=== PATIENT | female | born 1950 | race Caucasian/White ===

== ENCOUNTER 2018-02-03 15:34 | Outpatient (CLI) | payer MEDICARE, OTHER ==
[~2018-02-03] VITALS: Ht 177.8 cm; Wt 70.3 kg
[~2018-02-03 15:34] MED LIST: CA C1TAB26 PO; EST05TD TD; EST45C VG; LEVO100T7 PO; LVT.088T PO; METO25TA2 PO; MTP50T PO; PANT40TA2 PO; SUCR1TAB36 PO; prelief PO
[2018-02-03] MEDS ORDERED: PANT40TA3 PO (15:35)
[2018-02-03] MEDS ORDERED: EST30C VG (15:35)
[2018-02-03] MEDS ORDERED: ESTR1PAT53 TD (15:35)
== END 2018-02-03 15:37 | disposition home or self-care (01) ==
LOC: PREOP 15:34
PROVIDERS: ATTEND Surgery
DX: Z01.818 Encounter for other preprocedural examination (principal)

== ENCOUNTER → 2018-02-08 | Day surgery (SDC) | payer MEDICARE, OTHER ==
[~2018-02-08] VITALS: Ht 177.8 cm; Wt 70.3 kg
[~2018-02-08] MED LIST changes: +EST30C VG; +ESTR1PAT53 TD; +HURRICAINE EXT TUBE (BENZOCAINE) ONE; +HURRICAINE EXT TUBE (BENZOCAINE) XX PRN; +MIDAZOLAM 2 MG/2 ML (VERSED) VIAL IVP ONE; +MIDAZOLAM 2 MG/2 ML (VERSED) VIAL ONE; +NS IV 500 ML 500 ML IV PRN; +NS IV 500 ML 500 ML ONE; +PANT40TA3 PO; +fentaNYL INJECTION 100 MCG/2 ML AMP IVP ONE; +fentaNYL INJECTION 100 MCG/2 ML AMP ONE
--- OUTSIDE RECORDS SUMMARY | 2018-02-08 08:57 | XMS REPORT | Continuity of Care Document ---
Author Author [facility] Organization [facility] Address Unknown Phone Unavailable Allergies Active Description Code Type Severity Reaction Onset Reported/Identified Relationship to Patient Clinical Status Yes No Known Drug Allergies [id number] Drug Allergy Unknown N/A 09/14/2012 Medications There is no data. Problems Date Dx Coded Attending Type Code Diagnosis Diagnosed By 07/26/2015 SATNAM PAREDES STEEL TESTER Ot R10.84 08/11/2015 SATNAM PAREDES STEEL TESTER Ot R10.84 01/17/2016 ELIZABETH PINEDA MD Ot K21.9 GASTRO-ESOPHAGEAL REFLUX DISEASE WITHOUT 01/17/2016 ELIZABETH PINEDA MD Ot Z01.818 ENCOUNTER FOR OTHER PREPROCEDURAL EXAMIN 01/21/2016 SATNAM PAREDES STEEL TESTER Ot R10.84 GENERALIZED ABDOMINAL PAIN 01/21/2016 ELIZABETH PINEDA MD Ot K31.7 POLYP OF STOMACH AND DUODENUM 01/22/2016 SATNAM PAREDES STEEL TESTER Ot R10.84 GENERALIZED ABDOMINAL PAIN 01/22/2016 SATNAM PAREDES STEEL TESTER Ot R10.84 GENERALIZED ABDOMINAL PAIN 01/23/2016 ELIZABETH PINEDA MD Ot K21.9 GASTRO-ESOPHAGEAL REFLUX DISEASE WITHOUT 01/23/2016 MIRIAM WEI, ELIZABETH Jones Ot Z01.818 ENCOUNTER FOR OTHER PREPROCEDURAL EXAMIN 01/24/2016 ELIZABETH PINEDA MD Ot R10.11 RIGHT UPPER QUADRANT PAIN 02/13/2016 ELIZABETH PINEDA MD Ot R10.11 RIGHT UPPER QUADRANT PAIN 02/21/2016 ELIZABETH PINEDA MD Ot R10.11 RIGHT UPPER QUADRANT PAIN 02/02/2018 ELIZABETH PINEDA MD Ot Z01.818 ENCOUNTER FOR OTHER PREPROCEDURAL EXAMIN 02/03/2018 ELIZABETH PINEDA MD Ot Z01.818 ENCOUNTER FOR OTHER PREPROCEDURAL EXAMIN 02/03/2018 ELIZABETH PINEDA MD Ot Z01.818 ENCOUNTER FOR OTHER PREPROCEDURAL EXAMIN Procedures There is no data. Results There is no data. Encounters ACCT No. Visit Date/Time Discharge Status Pt. Type Provider Facility Loc./Unit Complaint [id number] 02/01/2018 05:41:00 02/01/2018 23:59:59 CLS Outpatient ELIZABETH PINEDA MD [facility] PREOP COLONOSCOPY/EGD [id number] 01/22/2016 08:33:00 01/22/2016 23:59:59 CLS Outpatient ELIZABETH PINEDA MD [facility] RAD RUQ PAIN [id number] 01/21/2016 09:20:00 01/21/2016 13:25:00 DIS Outpatient ELIZABETH PINEDA MD [facility] SDC REFLUX [id number] 01/17/2016 06:00:00 01/17/2016 13:42:00 DIS Outpatient ELIZABETH PINEDA MD [facility] PREOP REFLUX [id number] 07/05/2015 07:28:00 07/05/2015 23:59:59 CLS Outpatient SATNAM PAREDES STEEL TESTER [facility] RAD ABDOMINAL DISCOMFORT/PAIN [id number] 10/06/2012 07:12:00 10/06/2012 23:59:59 CLS Outpatient [id number] 10/05/2012 07:09:00 10/05/2012 23:59:59 CLS Outpatient [id number] 02/08/2018 09:30:00 PEN Preadmit ELIZABETH PINEDA MD [facility] ENDO GERD/HX OF POLYPS [id number] 01/14/2017 17:32:30 01/14/2017 23:59:59 CLS Outpatient
[2018-02-08 09:31] VITALS: BP 166/87
--- NOTE | 2018-02-08 10:28 | History & Physicial ---
History of Present Illness History of Present Illness Reason for visit/HPI to undergo an upper endoscopy to evaluate symptoms of reflux disease and for surveillance colonoscopy. She has a personal history of polyps and a family history of colon cancer, in her father. Date of Admission 02/08/18 Date Seen by Provider: Feb 08, 2018 Time Seen by Provider: 10:27 I consulted on this patient on 02/08/18 10:26 Attending Physician Elizabeth Villafuerte MD Admitting Physician Ro Calderón MD Consult Allergies and Home Medications Allergies Coded Allergies: No Known Drug Allergies (Unverified , 09/14/12) Home Medications Estradiol 1 Each Patch.tdwk, 1 EACH TD Twice Weekly, (Reported) Estrogens Conjugated 30 Gm Cr, 0.5 GM VG HS, (Reported) Levothyroxine Sodium 100 Mcg Tablet, 100 MCG PO DAILY, (Reported) Pantoprazole Sodium 40 Mg Tablet.dr, 40 MG PO DAILY Prescribed by: ELIZABETH VILLAFUERTE on 01/21/16 1152 Pantoprazole Sodium 40 Mg Tablet.dr, 40 MG PO DAILY PRN for HEARTBURN, (Reported ) Patient Home Medication List Home Medication List Reviewed: Yes Past Wakxfhd-Gctjas-Wjhreu Hx Patient Social History Marrital Status: Employed/Student: retired Alcohol Use: Rarely Uses Recreational Drug Use: No Smoking Status: Never a Smoker Recent Foreign Travel: No Contact w/other who traveled: No Recent Hopitalizations: No Recent Infectious Disease Expo: No Immunizations Up To Date Date of Influenza Vaccine: Mar 16, 2012 Seasonal Allergies Seasonal Allergies: No Surgeries Yes Hysterectomy, Oophorectomy Respiratory Currently Using CPAP: No Currently Using BIPAP: No Reproductive System Hx Reproductive Disorders: No Sexually Transmitted Disease: No HIV/AIDS: No Female Reproductive Disorders: Denies 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 Gastrointestinal Yes Gastroesophageal Reflux, Polyps Musculoskeletal No Endocrine History of Endocrine Disorders: Yes Endocrine Disorders: Hypothyroidsim HEENT Loss of Vision: Denies Hearing Impairment: Denies Review of Systems Constitutional: no symptoms reported EENTM: no symptoms reported Respiratory: no symptoms reported Cardiovascular: no symptoms reported Gastrointestinal: see HPI Genitourinary: no symptoms reported Musculoskeletal: no symptoms reported Skin: no symptoms reported Psychiatric/Neurological: No Symptoms Reported Physical Exam Vital Signs Vital Signs - First Documented 02/08/18 09:31 Temp 97.8 Pulse 102 Resp 18 B/P (MAP) 166/87 (113) Pulse Ox 95 O2 Delivery Room Air Capillary Refill : Height, Weight, BMI Height: 5'10.00" Weight: 155lbs. 0.0oz. 70.039685sd; 22.2 BMI Method: General Appearance: No Apparent Distress Neck: Normal Inspection Respiratory: Lungs Clear Cardiovascular: Regular Rate, Rhythm Gastrointestinal: Non Tender, Soft Rectal: Deferred Neurologic/Psychiatric: Alert, Oriented x3 Skin: Warm/Dry Assessment/Plan Assessment and Plan lady with history of gastroesophageal reflux disease and a personal history of polyps. For upper endoscopy with concomitant colonoscopy Admission Diagnosis Admission Status: Other (Outpt Proc) ELIZABETH VILLAFUERTE MD Feb 08, 2018 10:28
--- NOTE | 2018-02-08 10:29 | Conscious Sedation/ASA ---
Conscious Sedation Pre-Proced Time Reviewed: 10:29 ASA Class: 2 Airway Mallampati Classification: (venetie ira appropriate class) I. II. III, IV Lungs Heart ASA score ASA 1: a normal healthy patient ASA 2: a patient with a mild systemic disease (mid diabetes, controlled hypertension, obesity ASA 3: a patient with a severe systemic disease that limits activity (angina , COPD, prior Myocardial infarction) ASA 4: a patient with an incapacitating disease that is a constant threat to life (CHF, renal failure) ASA 5: a moribund patient not expected to survive 24 hrs. (ruptured aneurysm) ASA 6: a declared brain patient whose organs are being harvested. For emergent operations, add the letter E after the classification Grade 1 Sedation Plan: Discussed options with patient/fam Note The patient is an appropriate candidate to undergo the planned procedure, sedation, and anesthesia. The patient immediately re-assessed prior to indication. ELIZABETH PINEDA MD Feb 08, 2018 10:29
--- NOTE | 2018-02-08 10:47 | Endo Procedure Record ---
Endo Procedure Report Date of Procedure Last Colonoscopy: Yes Feb 08, 2018 Surgeon (s) ELIZABETH PINEDA MD Post Procedure/Op Diagnosis EGD:short hiatal hernia. Very few, benign-appearing, small polyps along the greater curvature of stomach. Colonoscopy: Sigmoid diverticulosis. No recurrent polyps. Procedure Performed EGD Colonoscopy to cecum Description of Procedure Anesthesia Type: Conscious Sedation Specimen(s) collected/removed none Description of the Procedure Indication for the procedures: This lady came in for an endoscopic assessment of symptoms of reflux disease and for surveillance colonoscopy. She has a personal history of polyps and a family history of colon cancer in her father. Informed consent was obtained after reviewing the procedures in detail. Description of the procedures: EGD: She was placed in left lateral decubitus position and her vital signs were monitored. Conscious sedation was achieved using Versed and fentanyl. The flexible gastroscope was then introduced down the esophagus, past the stomach, into the proximal duodenum. Findings: Esophagus: And uncomplicated, short hiatal hernia. Stomach: Very few, small, benign-appearing polyps along the greater curvature. These had been biopsied in the past and therefore further biopsy was not repeated Duodenum: Normal She tolerated the procedure well and was turned around in preparation for colonoscopy here Impression: Symptoms of reflux disease. No active esophagitis encountered. Colonoscopy: Digital rectal examination was unremarkable. The colonoscope was then introduced in the rectum and advanced to the cecum. The scope was then withdrawn slowl and the mucosa examined in a systematic fashion. Findings: Sigmoid diverticulosis. No recurrent polyps were found He tolerated the procedures well and was taken back to the nursing area in a stable condition. Impression: Polyp surveillance. Family history of colon cancer. No polyps and current examination. Recommend repeating in 5 years. Copy Copies To 1: FOSTER COOK MD, XAVIER M MD Feb 08, 2018 10:46
--- NOTE | 2018-02-08 11:09 | Discharge Inst-Simple/Standard ---
Discharge Inst-Standard Discharge Medications New, Converted or Re-Newed RX: Other Patient Instructions/Follow Up Plan of Care/Instructions/FU: follow up with her primary physician. Repeat colonoscopy in 5 years Activity as Tolerated: Yes Discharge Diet: No Restrictions ELIZABETH PINEDA MD Feb 08, 2018 11:09
[2018-02-08 11:25] VITALS: BP 129/67
[2018-02-08 11:55] VITALS: BP 120/91
[2018-02-08 12:35] VITALS: BP 120/91
== END | disposition home or self-care (01) ==
LOC: ENDO 08:53
PROVIDERS: ATTEND Surgery
DX: Z09 Encounter for follow-up examination after completed treatment for conditions other than malignant neoplasm (principal); K57.30 Diverticulosis of large intestine without perforation or abscess without bleeding; K31.7 Polyp of stomach and duodenum; K44.9 Diaphragmatic hernia without obstruction or gangrene; Z86.010 Personal history of colon polyps; Z80.0 Family history of malignant neoplasm of digestive organs; E03.9 Hypothyroidism, unspecified; Z79.899 Other long term (current) drug therapy

== ENCOUNTER 2020-10-18 08:52 | Outpatient (RCR) | payer MEDICARE, OTHER ==
[~2020-10-18 08:52] MED LIST changes: -HURRICAINE EXT TUBE (BENZOCAINE) ONE; -HURRICAINE EXT TUBE (BENZOCAINE) XX PRN; -MIDAZOLAM 2 MG/2 ML (VERSED) VIAL IVP ONE; -MIDAZOLAM 2 MG/2 ML (VERSED) VIAL ONE; -NS IV 500 ML 500 ML IV PRN; -NS IV 500 ML 500 ML ONE; -PANT40TA3 PO; +PANT40TA52 PO; -fentaNYL INJECTION 100 MCG/2 ML AMP IVP ONE; -fentaNYL INJECTION 100 MCG/2 ML AMP ONE
[2020-11-01] MEDS ORDERED: PATIENT MAY USE OWN MEDS, ALL PO SCH (10:30)
[2020-11-01] MEDS ORDERED: NS IV 1000 ML 1,000 ML IV SCH (10:30)
[2020-11-01] MEDS ORDERED: CALC600T91 PO (14:25)
[2020-11-01] MEDS ORDERED: RIVA20TA PO (14:25)
[2020-11-01] MEDS ORDERED: ESTR10TA VG (14:25)
[2020-11-01] MEDS ORDERED: FLUC200T5 PO (14:25)
[2020-11-01] MEDS ORDERED: FISH1CAP15 PO (14:25)
[2020-11-01] MEDS ORDERED: CHOL500044 PO (14:25)
[2020-11-02 06:21] LABS: INR 1.8 (0.8-1.4); PROTHROMBIN TIME PATIENT 21.4 SEC (12.2-14.7)
[2020-11-02] MEDS ORDERED: LEVO50TA6 PO (09:32)
[2020-11-02] MEDS ORDERED: RIVA20TA PO (09:32)
[2020-11-02] MEDS ORDERED: MTP25TSR PO (09:32)
[2020-11-02] MEDS ORDERED: ASPI-1238 PO (09:32)
== END 2021-01-16 | disposition home or self-care (01) ==
LOC: CARD 08:52
PROVIDERS: ATTEND Family Medicine
DX: I48.0 Paroxysmal atrial fibrillation (principal); R42 Dizziness and giddiness; R53.83 Other fatigue
CPT/HCPCS: 36415; 85610

== ENCOUNTER 2020-11-01 10:30 | Observation (INO) | payer MEDICARE, OTHER ==
[~2020-11-01] VITALS: Ht 177 cm; Wt 68.5 kg
[2020-11-01 11:20] VITALS: BP 151/92
[2020-11-01] MEDS ORDERED: PATIENT MAY USE OWN MEDS, ALL PO SCH (12:45)
--- NOTE | 2020-11-01 12:49 | History & Physical ---
History of Present Illness History of Present Illness Reason for visit/HPI PT IS A 70 Y/O FEMALE WHO IS WELL KNOWN TO ME FROM CLINIC. SHE PRESENTED TO THE HOSPITAL TODAY AFTER I RECEIVED A PHONE CALL FROM THE EVENT MONITORING SERVICE THAT SHE HAD A 30 SECOND RUN OF AFIB WITH RVR WITH A MAXIMUM HEART RATE OF 238. PT WAS PLAYING GOLF AT THE TIME, FELT A STRANGE FLUTTERING IN HER CHEST, BUT DID NOT REALIZE WHAT WAS HAPPENING. SHE HAS BEEN HAVING INTERMITTENT PALPITATIONS PRIOR TO THIS EVENT AND HAD A RUN OF AFIB ON 10/26/2020 WELL. WE WERE NOTIFIED OF THIS BY FAX FROM THE EVENT MONITORING COMPANY AND STARTED HER ON XARELTO YESTERDAY. Date of Admission Nov 01, 2020 at 11:00 Date Seen by a Provider: Nov 01, 2020 Time Seen by a Provider: 19:00 I consulted on this patient on 11/01/20 12:46 Attending Physician Foster Calderón MD Admitting Physician Foster Calderón MD Consult GALA LE MD - CARDIOLOGY Allergies and Home Medications Allergies Coded Allergies: No Known Drug Allergies (Unverified , 09/14/12) Home Medications Calcium Carbonate 600 Mg Tablet, 1,200 MG PO DAILY, (Reported) Last Action: Held Cholecalciferol (Vitamin D3) 125 Mcg Tablet, 125 MCG PO DAILY, (Reported) Last Action: Held Estradiol 10 Mcg Tablet, 10 MCG VG THU,THU, (Reported) Last Action: Held Fish Oil/Dha/Epa 1 Each Capsule, 1 EACH PO TID, (Reported) Last Action: Held Fluconazole 200 Mg Tablet, 200 MG PO MON, (Reported) Last Action: Held Levothyroxine Sodium 100 Mcg Tablet, 100 MCG PO THU,,THU,FR,SA, (Reported) Last Action: Held Rivaroxaban 20 Mg Tablet, 20 MG PO 1800, (Reported) Last Action: Reviewed Patient Home Medication List Home Medication List Reviewed: Yes Past Ololnzd-Hcbfay-Whkmej Hx Past Med/Social Hx: Reviewed Nursing Past Med/Soc Hx, Reviewed and Corrections made Patient Social History Marrital Status: Living Status: LIVES AT HOME WITH SPOUSE IN [place], RETIRED Employed/Student: retired Alcohol Use: Rarely Uses Smoking Status: Never a Smoker 2nd Hand Smoke Exposure: No Physical Abuse Screen: No Sexual Abuse: No Recent Foreign Travel: No Contact w/other who traveled: No Recent Hopitalizations: No Recent Infectious Disease Expo: No Immunizations Up To Date Date of Influenza Vaccine: Mar 16, 2012 Seasonal Allergies Seasonal Allergies: No Past Medical History Surgeries: Hysterectomy, Oophorectomy Currently Using CPAP: No Currently Using BIPAP: No Reproductive: No Sexually Transmitted Disease: No HIV/AIDS: No Female Reproductive Disorders: Denies Hysterectomy Gastrointestinal: Gastroesophageal Reflux, Polyps Endocrine: Hypothyroidsim (HX OF HYPERTHYROIDISM STATUS POST ABLATION WITH RADIOACTIVE IODINE) Loss of Vision: Denies Hearing Impairment: Denies Family History Reviewed and Corrections made Hypertension, Other Conditions/Hx (MYASTHENIA GRAVIS - FATHER) Review of Systems Constitutional: No chills, No fever, No malaise, No weakness EENTM: No hoarseness, No throat pain Respiratory: cough; No dyspnea on exertion; phlegm; No short of breath Cardiovascular: No chest pain, No Hx of Intervention; palpitations Gastrointestinal: No abdominal pain, No constipation, No diarrhea, No loss of appetite, No nausea, No vomiting Genitourinary: frequency : No Musculoskeletal: No back pain, No muscle pain, No muscle weakness Skin: No change in color, No change in hair/nails, No dryness, No rash Psychiatric/Neurological: Anxiety; Denies Depressed, Denies Headache, Denies Numbness, Denies Paresthesia, Denies Weakness All Other Systems Reviewed Negative Unless Noted: Yes Physical Exam Vital Signs Vital Signs - First Documented 11/01/20 11/01/20 11:10 11:20 Temp 37.3 Pulse 125 Resp 11 B/P (MAP) 151/92 (111) Pulse Ox 97 O2 Delivery Room Air Capillary Refill : Height, Weight, BMI Height: 5'10.00" Weight: 155lbs. 0.0oz. 70.772586jl; 22.2 BMI Method: General Appearance: No Apparent Distress, WD/WN Eyes: Bilateral Eye Normal Inspection, Bilateral Eye PERRL, Bilateral Eye EOMI HEENT: PERRL/EOMI, Pharynx Normal Neck: Full Range of Motion, Normal Inspection, Non Tender, Supple Respiratory: Chest Non Tender, Lungs Clear, Normal Breath Sounds, No Accessory Muscle Use, No Respiratory Distress Cardiovascular: Regular Rate, Rhythm, No Edema, No Murmur, Normal Peripheral Pulses Gastrointestinal: Normal Bowel Sounds, No Organomegaly, No Pulsatile Mass, Non Tender, Soft Rectal: Deferred Back: Normal Inspection, No CVA Tenderness, No Vertebral Tenderness Extremity: Normal Capillary Refill, Normal Inspection, Normal Range of Motion, Non Tender, No Calf Tenderness, No Pedal Edema Neurologic/Psychiatric: Alert, Oriented x3, No Motor/Sensory Deficits, Normal 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 PT WAS THEREFORE ADMITTED FOR EVALUATION. - CONTINUE WITH XARELTO 20MG DAILY - RX FOR METOPROLOL STARTED BY CARDIOLOGY - MONITOR OVERNIGHT - WILL REMOVE EVENT MONITOR CHRONIC HYPOTHYROIDISM - FREE T4 WAS 1.23 OUTPT - HIGH NORMAL IS 1.12, MEDICATIONS HAVE BEEN DECREASED FROM 100MCG DAILY OF SYNTHROID DOWN TO AN AVERAGE OF 70MCG DAILY. Admission Diagnosis ATRIAL FIBRILLATION WITH RVR CHRONIC HYPOTHYROIDISM Admission Status: Inpatient Order (span 2 midnights) Reason for Inpatient Admission: INPT ADMISSION FOR AFIB RVR, WILL REQUIRE MEDICATION MONITORING FOR AT LEAST 48 HOURS FOSTER CALDERÓN MD Nov 01, 2020 12:49
[2020-11-01] MEDS: NS IV 1000 ML 1,000 ML IV SCH (13:08)
[2020-11-01 13:09] LABS: BASOPHILS % (AUTO) 1 % (0-10); EOSINOPHILS # (AUTO) 0.1 10^3/uL (0.0-0.3); EOSINOPHILS % (AUTO) 1 % (0-10); HEMATOCRIT 41 % (35-52); HEMOGLOBIN 13.3 g/dL (11.5-16.0); LYMPHOCYTES # (AUTO) 1.7 10^3/uL (1.0-4.0); LYMPHOCYTES % (AUTO) 24 % (12-44); MEAN CORPUSCULAR HEMOGLOBIN 30 pg (25-34); MEAN CORPUSCULAR HGB CONC 33 g/dL (32-36); MEAN CORPUSCULAR VOLUME 91 fL (80-99); MEAN PLATELET VOLUME 10.1 fL (9.0-12.2); MONOCYTES # (AUTO) 0.6 10^3/uL (0.0-1.0); MONOCYTES % (AUTO) 9 % (0-12); NEUTROPHILS # (AUTO) 4.6 10^3/uL (1.8-7.8); NEUTROPHILS % (AUTO) 65 % (42-75); PLATELET COUNT 304 10^3/uL (130-400)
[2020-11-01 13:27] LABS: ALANINE AMINOTRANSFERASE 18 U/L (0-55); ALBUMIN 4.3 GM/DL (3.2-4.5); ALKALINE PHOSPHATASE 61 U/L (40-136); BILIRUBIN,TOTAL 0.3 MG/DL (0.1-1.0); BUN/CREATININE RATIO 18; CALCIUM 9.9 MG/DL (8.5-10.1); CARBON DIOXIDE 24 MMOL/L (21-32); CHLORIDE 107 MMOL/L (98-107); CREATININE SERUM 0.85 MG/DL (0.60-1.30); GFR ESTIMATED > 60; GLUCOSE 88 MG/DL (70-105); POTASSIUM 4.1 MMOL/L (3.6-5.0); SODIUM 143 MMOL/L (135-145); TOTAL PROTEIN 7.7 GM/DL (6.4-8.2)
[2020-11-01 13:41] LABS: INR 1.2 (0.8-1.4); PROTHROMBIN TIME PATIENT 15.1 SEC (12.2-14.7)
[2020-11-01] MEDS ORDERED: RIVA20TA PO (14:25)
[2020-11-01] MEDS ORDERED: CALC600T91 PO (14:25)
[2020-11-01] MEDS ORDERED: ESTR10TA VG (14:25)
[2020-11-01] MEDS ORDERED: FLUC200T5 PO (14:25)
[2020-11-01] MEDS ORDERED: FISH1CAP15 PO (14:25)
[2020-11-01] MEDS ORDERED: CHOL500044 PO (14:25)
[2020-11-01 15:55] VITALS: BP 163/84
--- NOTE | 2020-11-01 18:32 | Consultation-Cardiology ---
HPI-Cardiology Cardiology Consultation: Date of Consultation 11/01/20 Date of Admission Attending Physician Ro Calderón MD Admitting Physician Ro Calderón MD Consulting Physician AGLA LE JR, MD HPI: Time Seen by a Provider: 18:26 Chief Complaint: Reason for consultation: Atrial fibrillation. I had the pleasure of seeing Mireya in the hospital today. Approximately 1 month ago she was in a golf tournament and suddenly developed palpitations with a sensation of fluttering in her chest. She denies any associated lightheadedness, syncope, chest discomfort, or dyspnea. This lasted off and on for 1-2 hours. She was able to complete her golf game. The following day she saw her primary provider who did some blood work for her thyroid level and also ordered a 30-day event monitor. After about 2 weeks, the patient finally received the event monitor and while she was wearing the device, apparently had an episode of atrial fibrillation with a rapid ventricular rate. Unfortunately, the patient's primary care provider was not notified about this event until several days later. She then notified the patient and placed her on Xarelto. The patient just received Xarelto yesterday and took a dose last evening. Her thyroid level was slightly off and her thyroid medication has been adjusted. Then today, the patient had more palpitations with the sensation of a fluttering. She again denies associated symptoms. The event monitor company then notified the patient's primary care provider that the patient had gone into atrial fibrillation with a rapid ventricular rate up into the 220 bpm range. The patient was then notified and instructed to come to the hospital for admission. On admission, the patient was in sinus rhythm. I do not have any rhythm strips from the event monitor. The patient is still wearing the event monitor. Since being here in the hospital she denies any recurrent palpitations. She denies chest discomfort, dyspnea, paroxysmal nocturnal dys pnea, orthopnea, palpitations, lightheadedness, syncope, or lower extremity edema. She is a very avid golfer and plays golf many days of the week. She often walks the course. She is a non-smoker. Review of Systems-Cardiology Review of Systems Other comments Review of 10 organ systems is as per the history of present illness, otherwise negative. IBJ-Vrumua-Jwuuyx Hx Patient Social History Marrital Status: Have you traveled recently?: No Alcohol Use?: Yes Pt feels they are or have been: No Immunizations Up To Date Date of Influenza Vaccine: Feb 29, 2020 Past Medical History PMH As described under Assessment. Allergies and Home Medications Allergies Coded Allergies: No Known Drug Allergies (Unverified , 09/14/12) Home Medications Calcium Carbonate 600 Mg Tablet, 1,200 MG PO DAILY, (Reported) Last Action: Reviewed Cholecalciferol (Vitamin D3) 125 Mcg Tablet, 125 MCG PO DAILY, (Reported) Last Action: Reviewed Estradiol 10 Mcg Tablet, 10 MCG VG TUE,THU, (Reported) Last Action: Reviewed Fish Oil/Dha/Epa 1 Each Capsule, 1 EACH PO TID, (Reported) Last Action: Reviewed Fluconazole 200 Mg Tablet, 200 MG PO MON, (Reported) Last Action: Reviewed Levothyroxine Sodium 100 Mcg Tablet, 100 MCG PO MON,,JEREMY,FR,SA, (Reported) Last Action: Reviewed Rivaroxaban 20 Mg Tablet, 20 MG PO 1800, (Reported) Last Action: Reviewed Patient Home Medication List Home Medication List Reviewed: Yes Physical Exam-Cardiology Physical Exam Vital Signs/I&O 11/01/20 11/01/20 11/01/20 11/01/20 11:10 11:20 13:00 15:55 Temp 37.3 37.0 Pulse 125 113 95 91 Resp 11 17 B/P (MAP) 151/92 (111) 163/84 (110) Pulse Ox 97 98 O2 Delivery Room Air Room Air Capillary Refill : Constitutional: appears stated age, AAO x 3, well-developed, well-nourished HEENT: EOMI Neck: non-tender, full range of motion, supple, normal inspection, carotid pulses are 2 + bilaterally, with good upstrokes Respiratory: chest expansion is symmetric, lungs clear to auscultation Cardiovascular: regular rate-rhythm, S1 and S2, other (No murmurs, rubs or gallops appreciated.) Gastrointestinal: soft, audible bowel sounds, other (Nondistended. 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, alert, normal mood/affect, oriented x 3, power is 5/5 both on sides Data Review Labs Laboratory Tests 11/01/20 13:00: White Blood Count 7.0, Red Blood Count 4.49, Hemoglobin 13.3, Hematocrit 41, Mean Corpuscular Volume 91, Mean Corpuscular Hemoglobin 30, Mean Corpuscular Hemoglobin Concent 33, Red Cell Distribution Width 12.9, Platelet Count 304, Mean Platelet Volume 10.1, Immature Granulocyte % (Auto) 0, Neutrophils (%) (Auto) 65, Lymphocytes (%) (Auto) 24, Monocytes (%) (Auto) 9, Eosinophils (%) (Auto) 1, Basophils (%) (Auto) 1, Neutrophils # (Auto) 4.6, Lymphocytes # (Auto) 1.7, Monocytes # (Auto) 0.6, Eosinophils # (Auto) 0.1, Basophils # (Auto) 0.0, Immature Granulocyte # (Auto) 0.0, Prothrombin Time 15.1H, INR Comment 1.2, Activated Partial Thromboplast Time 35, Sodium Level 143, Potassium Level 4.1, Chloride Level 107, Carbon Dioxide Level 24, Anion Gap 12, Blood Urea Nitrogen 15, Creatinine 0.85, Estimat Glomerular Filtration Rate > 60, BUN/Creatinine Ratio 18, Glucose Level 88, Calcium Level 9.9, Corrected Calcium 9.7, Total Bilirubin 0.3, Aspartate Amino Transf (AST/SGOT) 24, Alanine Aminotransferase (ALT/SGPT) 18, Alkaline Phosphatase 61, Myoglobin 68.8, Troponin I < 0.028, Total Protein 7.7, Albumin 4.3 ECG Impression ECG Comment Sinus rhythm, unremarkable tracing. A/P-Cardiology Assessment/Admission Diagnosis Paroxysmal atrial fibrillation. The patient has been having intermittent note atrial fibrillation noted on event recorder. I do not have any rhythm strips for review. She is presently on sinus rhythm. I spoke to the patient's primary care provider earlier today and the reported heart rates have been up into the low 200 bpm range. I recommend starting the patient on low-dose beta-madhavi. She should be resumed on her Xarelto. I will obtain an echocardiogram in the morning to assess for any structural heart disease that could predispose to atrial fibrillation. Her thyroid will need to be brought under good control. Hypothyroid. She was previously hyperthyroid and underwent radioactive ablation. She not takes thyroid supplementation. She had a recent thyroid panel that was apparently slightly off and her thyroid medication was just adjusted within the past couple of weeks. Her primary care provider is monitoring this condition. Plan See assessment and plan. GALA LE JR, MD Nov 01, 2020 18:32
[2020-11-01] MEDS ORDERED: RIVAROXABAN 20 MG TABLET (XARELTO) PO SCH (19:00)
[2020-11-01 19:28] VITALS: BP 146/91
[2020-11-02 00:04] VITALS: BP 127/75
[2020-11-02] MEDS: NS IV 1000 ML 1,000 ML IV SCH (02:10)
[2020-11-02 03:22] VITALS: BP 111/63
[2020-11-02 04:00] VITALS: BP 113/58
[2020-11-02 05:27] LABS: TRIGLYCERIDES 115 MG/DL (<150); VLDL CHOLESTEROL 23 MG/DL (5-40)
[2020-11-02 05:31] LABS: CHOLESTEROL 206 MG/DL (< 200)
[2020-11-02 05:32] LABS: HDL CHOLESTEROL 48 MG/DL (40-60)
[2020-11-02 08:15] VITALS: BP 139/83
[2020-11-02] MEDS ORDERED: ASPIRIN E.C. 81 MG (ECOTRIN) TAB PO SCH (09:00)
[2020-11-02] MEDS ORDERED: LEVO50TA6 PO (09:32)
[2020-11-02] MEDS ORDERED: RIVA20TA PO (09:32)
[2020-11-02] MEDS ORDERED: ASPI-1238 PO (09:32)
[2020-11-02] MEDS ORDERED: MTP25TSR PO (09:32)
--- NOTE | 2020-11-02 09:34 | Discharge Inst-Simple/Standard ---
Discharge Inst-Standard Reconcile Patient Problems Problems Reviewed?: Yes Discharge Medications New, Converted or Re-Newed RX: Transmitted to Pharmacy ([facility]) Patient Instructions/Follow Up Plan of Care/Instructions/FU: 1-2 wks [facility] keep appt on Thursday with new house mover Activity as Tolerated: Yes Discharge Diet: Regular Diet Health Concerns: atrial fibrillation post-ablative hypothyroidism Return to The Hospital For: any concern for uncontrolled heart rate that is persistent, or any other lifethreatening illness or injury Medication List: Active Scripts Active Levothyroxine Sodium 50 Mcg Tablet 50 Mcg PO DAILY Aspirin EC (Aspirin) 81 Mg Tablet.dr 81 Mg PO DAILY Metoprolol Succinate 25 Mg Tab.er.24h 25 Mg PO DAILY Xarelto (Rivaroxaban) 20 Mg Tablet 20 Mg PO 1800 Reported Fluconazole 200 Mg Tablet 200 Mg PO MON Vitamin D3 (Cholecalciferol (Vitamin D3)) 125 Mcg Tablet 125 Mcg PO DAILY Fish Oil 1,200 mg Fish Oil (Fish Oil/Dha/Epa) 1 Each Capsule 1 Each PO TID Calcium (Calcium Carbonate) 600 Mg Tablet 1,200 Mg PO DAILY Vagifem (Estradiol) 10 Mcg Tablet 10 Mcg VG Lab results: Laboratory Tests Test 11/01/20 13:00 11/02/20 04:53 11/02/20 04:54 Range/Units White Blood Count 7.0 4.3-11.0 10^3/uL Red Blood Count 4.49 3.80-5.11 10^6/uL Hemoglobin 13.3 11.5-16.0 g/dL Hematocrit 41 35-52 % Mean Corpuscular Volume 91 80-99 fL Mean Corpuscular Hemoglobin 30 25-34 pg Mean Corpuscular Hemoglobin Concent 33 32-36 g/dL Red Cell Distribution Width 12.9 10.0-14.5 % Platelet Count 304 130-400 10^3/uL Mean Platelet Volume 10.1 9.0-12.2 fL Immature Granulocyte % (Auto) 0 % Neutrophils (%) (Auto) 65 42-75 % Lymphocytes (%) (Auto) 24 12-44 % Monocytes (%) (Auto) 9 0-12 % Eosinophils (%) (Auto) 1 0-10 % Basophils (%) (Auto) 1 0-10 % Neutrophils # (Auto) 4.6 1.8-7.8 10^3/uL Lymphocytes # (Auto) 1.7 1.0-4.0 10^3/uL Monocytes # (Auto) 0.6 0.0-1.0 10^3/uL Eosinophils # (Auto) 0.1 0.0-0.3 10^3/uL Basophils # (Auto) 0.0 0.0-0.1 10^3/uL Immature Granulocyte # (Auto) 0.0 0.0-0.1 10^3/uL Prothrombin Time 15.1 H 12.2-14.7 SEC INR Comment 1.2 0.8-1.4 Activated Partial Thromboplast Time 35 24-35 SEC Sodium Level 143 135-145 MMOL/L Potassium Level 4.1 3.6-5.0 MMOL/L Chloride Level 107 98-107 MMOL/L Carbon Dioxide Level 24 21-32 MMOL/L Anion Gap 12 5-14 MMOL/L Blood Urea Nitrogen 15 7-18 MG/DL Creatinine 0.85 0.60-1.30 MG/DL Estimat Glomerular Filtration Rate > 60 BUN/Creatinine Ratio 18 Glucose Level 88 70-105 MG/DL Calcium Level 9.9 8.5-10.1 MG/DL Corrected Calcium 9.7 8.5-10.1 MG/DL Total Bilirubin 0.3 0.1-1.0 MG/DL Aspartate Amino Transf (AST/SGOT) 24 5-34 U/L Alanine Aminotransferase (ALT/SGPT) 18 0-55 U/L Alkaline Phosphatase 61 40-136 U/L Myoglobin 68.8 10.0-92.0 NG/ML Troponin I < 0.028 < 0.028 <0.028 NG/ML Total Protein 7.7 6.4-8.2 GM/DL Albumin 4.3 3.2-4.5 GM/DL Triglycerides Level 115 <150 MG/DL Cholesterol Level 206 H < 200 MG/DL LDL Cholesterol Direct 156 H 1-129 MG/DL VLDL Cholesterol 23 5-40 MG/DL HDL Cholesterol 48 40-60 MG/DL My orders: Orders - FOSTER COOK MD Ekg Tracing (11/01/20 12:41) Admission Order(Inpt,Obs,Sdc) (11/01/20 12:39) Code/Resuscitation (11/01/20 12:39) Initiate Admission Nursing Pro .admission (11/01/20 12:39) Sequential Compression Device .admit (11/01/20 12:39) Initiate Admission Nursing Pro .admission (11/01/20 12:39) Sequential Compression Device .admit (11/01/20 12:39) Consult Cardiology (11/01/20 12:39) Ns Iv 1000 Ml (Sodium Chloride 0.9%) (11/01/20 12:45) Troponin I (11/01/20 12:39) Intake & Output BID (11/01/20 12:39) Myoglobin Serum (11/01/20 12:39) Protime With Inr (11/01/20 12:39) Partial Thromboplastin Time (11/01/20 12:39) Cbc With Automated Diff (11/01/20 12:39) Comprehensive Metabolic Panel (11/01/20 12:39) Lipid Panel (11/02/20 05:00) Aspirin Enteric Coated Tablet (Ecotrin T (11/02/20 09:00) Vital Signs: Chest Pain (Orde (11/01/20 ) Npo After Midnight (Nursing Or (11/01/20 12:39) Telemetry (11/01/20 12:39) Patient May Use Own Meds, All (Patient M (11/01/20 12:45) Nothing By Mouth (11/02/20 Breakfast) Telemetry Nursing Assessment ( (11/01/20 12:39) Isolation Central Supply Req (11/01/20 13:22) Troponin I (11/02/20 07:30) Heart Healthy (11/02/20 Breakfast) Attending Discharge Inpt/Inobs (11/02/20 09:29) FOSTER COOK MD Nov 02, 2020 09:34
--- NOTE | 2020-11-02 09:45 | Discharge Summary ---
Diagnosis/Chief Complaint Date of Admission Nov 01, 2020 at 11:00 Date of Discharge Discharge Date: Nov 02, 2020 Discharge Time: 1200 Admission Diagnosis Admission Diagnosis ATRIAL FIBRILLATION WITH RVR CHRONIC HYPOTHYROIDISM Discharge Diagnosis ATRIAL FIBRILLATION WITH RVR CHRONIC HYPOTHYROIDISM Reason Hospital Visit PT IS A 70 Y/O FEMALE WHO IS WELL KNOWN TO ME FROM CLINIC. SHE PRESENTED TO THE HOSPITAL TODAY AFTER I RECEIVED A PHONE CALL FROM THE [employer] THAT SHE HAD A 30 SECOND RUN OF AFIB WITH RVR WITH A MAXIMUM HEART RATE OF 238. PT WAS PLAYING GOLF AT THE TIME, FELT A STRANGE FLUTTERING IN HER CHEST, BUT DID NOT REALIZE WHAT WAS HAPPENING. SHE HAS BEEN HAVING INTERMITTENT PALPITATIONS PRIOR TO THIS EVENT AND HAD A RUN OF AFIB ON 10/26/2020 WELL. WE WERE NOTIFIED OF THIS BY FAX FROM THE EVENT [employer] AND STARTED HER ON XARELTO YESTERDAY. Discharge Summary Procedures: ECHO Consultations DR LE Discharge Physical Examination Allergies: Coded Allergies: No Known Drug Allergies (Unverified , 09/14/12) Vitals & I&Os Vital Signs Date Time Temp Pulse Resp B/P (MAP) Pulse Ox O2 Delivery O2 Flow Rate FiO2 11/02/20 08:15 36.7 72 14 139/83 (101) 98 Room Air General Appearance: Alert, Oriented X3, Cooperative, No Acute Distress HEENT: Atraumatic, PERRLA, Mucous Memb Moist/[place] Respiratory: Clear to Auscultation, Normal Air Movement Cardiovascular: Regular Rate Abdominal: Normal Bowel Sounds, Soft, No Tenderness Extremities: No Clubbing, No Cyanosis, No Edema Skin: No Rashes, No Breakdown Neuro: Normal Speech, Cranial Nerves 3-12 NL Psych/Mental Status: Mental Status NL, Mood NL Hospital Course Was the Problem List Reviewed?: Yes ATRIAL FIBRILLATION WITH RVR CHRONIC HYPOTHYROIDISM ATRIAL FIBRILLATION WITH RVR - RATE WAS CONTROLLED ON ADMISSION, HOWEVER PT HAD AN EPISODE OF AFIB WITH RVR WITH A HEART RATE REPORTED TO ME VERBALLY BY THE [employer] AT 238. PT WAS THEREFORE ADMITTED FOR EVALUATION. - CONTINUE WITH XARELTO 20MG DAILY - RX FOR METOPROLOL XL 25MG DAILY STARTED BY CARDIOLOGY - WILL CONTINUE OUTPATIENT - WILL KEEP EVENT MONITOR IN PLACE FOR THE NEXT 14 DAYS AND THEN FOLLOW UP IF THERE ARE ANY MORE RUNS OF AFIB WITH RVR. - STAY IN HOSPITAL SHORTER THAN EXPECTED SINCE MILAD HAS NOT HAD ANY MORE EVENTS, TROPONIN WAS NEGATIVE, AND SHE IS TOLERATING THE NEW BETA MANINDER WITHOUT HYPOTENSION. CHRONIC HYPOTHYROIDISM - FREE T4 WAS 1.23 OUTPT - HIGH NORMAL IS 1.12, MEDICATIONS HAVE BEEN DECREASED FROM 100MCG DAILY OF SYNTHROID DOWN TO AN AVERAGE OF 70MCG DAILY. - WILL HOLD DOSE OF SYNTHROID TODAY AND WILL RESTART NEW DOSING OF LEVOTHYROXINE 50MCG DAILY. PT DID NOT STAY FOR 48 HOURS (TWO MIDNIGHTS) DUE TO HAVING CONVERTED AND DID NOT GO BACK INTO ATRIAL FIBRILLATION WITH RVR. THE RATE OF 238 WAS VERY HIGH RISK AND SINCE SHE HAS NOT GONE BACK INTO AFIB SINCE BEING ADMITTED, WE WILL THEREFORE BE ABLE TO DISCHARGE HER FASTER THAN EXPECTED FROM THE HOSPITAL INPATIENT STATUS. Pending Labs Laboratory Tests 11/02/20 04:53: Troponin I < 0.028 11/02/20 04:54: Triglycerides Level 115, Cholesterol Level 206, LDL Cholesterol Direct 156, VLDL Cholesterol 23, HDL Cholesterol 48 Discharge Condition at discharge IMPROVED Instructions to patient/family Please see electronic discharge instructions given to patient. Discharge Medications Reviewed and agree with Discharge Medication list on patient's Discharge Instr uction sheet FOSTER COOK MD Nov 02, 2020 09:45
== END 2020-11-02 11:00 | disposition home or self-care (01) ==
LOC: INTOOBSV 11:00 → CSD 11:00
PROVIDERS: ADMIT Family Medicine; ATTEND Family Medicine
DX: I48.20 Chronic atrial fibrillation, unspecified (principal); I48.0 Paroxysmal atrial fibrillation; E03.9 Hypothyroidism, unspecified; K21.9 Gastro-esophageal reflux disease without esophagitis; Z79.899 Other long term (current) drug therapy; Z79.890 Hormone replacement therapy
CPT/HCPCS: 36415; 80053; 80061; 83874; 84484; 85025; 85610; 85730; 93005; 93306; 99211

== ENCOUNTER → 2020-12-13 | Outpatient (CLI) | payer MEDICARE, OTHER ==
[~2020-12-13] MED LIST changes: +ASPI-1238 PO; +CALC600T91 PO; +CATHETER FLUSH 10 ML SYR IV PRN; +CHOL500044 PO; +ESTR10TA VG; +FISH1CAP15 PO; +FLUC200T5 PO; +LEVO50TA6 PO; +MTP25TSR PO; +RIVA20TA PO
[2020-12-13 08:37] VITALS: BP 134/75
--- NOTE | 2020-12-13 15:31 | NUCLEAR STRESS TEST ---
TREADMILL NUCLEAR STRESS TEST Date of procedure: 12/13/2020. Primary care provider: Ro Calderón MD. Admitting physician: Lefty Murrell Jr., MD. INDICATION: Paroxysmal atrial fibrillation. BASELINE ELECTROCARDIOGRAM: Sinus rhythm, normal tracing. STRESS TEST PROCEDURE: The patient was exercised for a total of 4 minutes and 16 seconds of the standard Dennis protocol achieving a maximum MET level of 6. The resting heart rate was 64 bpm and the peak heart rate was 140 bpm, which represents 93% of the maximum predicted heart rate. The resting blood pressure was 139/72 mmHg and the peak blood pressure was 188/82 mmHg. This represents a normal heart rate and a normal blood pressure response to exercise. The test was stopped due to fatigue. There was no chest discomfort during the test. There were isolated premature ventricular complexes during the test. There were no positive stress induced electrocardiogram changes with approximately [address] depression in the inferior leads that improved in recovery. The patient exhibited good exercise capacity for age. NUCLEAR PROCEDURE: The patient was administered 10.9 mCi of intravenous technetium 99m Tetrofosmin at rest for the rest images. The patient was subsequently administered 30.9 mCi of intravenous technetium 99 M Tetrofosmin at peak stress for the stress images. Following an appropriate wait after each injection, imaging was obtained. The images were subsequently processed and reformatted in the usual views. Gated imaging was obtained. The image quality was adequate with some gastrointestinal attenuation artifact. CT attenuation correction was used as an adjunct to standard imaging. Both the corrected and uncorrected images were reviewed for interpretation. NUCLEAR RESULTS: There was normal myocardial perfusion in all segments without evidence of infarction or ischemia. There was normal left ventricular chamber size with an end-diastolic volume of 47 mL and an end-systolic volume of 17 mL. There was no evidence of transient ischemic dilatation. The TID ratio was 1. There was normal wall motion in all segments with a calculated ejection fraction of 63%. IMPRESSION: 1. Normal heart rate and blood pressure response to exercise. 2. There was no exercise-induced chest discomfort. 3. There were isolated premature ventricular complexes during the test. 4. There were positive exercise-induced electrocardiogram changes that resolved in recovery. 5. The patient exhibited good exercise capacity for age at 4 minutes and 16 seconds of the Dennis protocol. 6. There was normal myocardial perfusion in all segments without evidence of infarction or ischemia. 7. There was normal wall motion in all segments with a calculated ejection fraction of 63%. Certain portions of this document may have been dictated utilizing voice recognition technology. Inherent to this technology, typographical and gr ammatical errors may exist. As much as I am diligent to identify and correct these mistakes, some errors may remain in the document. LEFTY MURRELL JR, MD Dec 13, 2020 15:31
== END ==
LOC: CARD 07:45
PROVIDERS: ATTEND Internal Medicine Cardiovascular Disease
DX: I48.0 Paroxysmal atrial fibrillation (principal)
CPT/HCPCS: 78452; 93017; A9502

== ENCOUNTER → 2022-06-10 | Outpatient (CLI) | payer MEDICARE, OTHER ==
[~2022-06-10] MED LIST changes: -CATHETER FLUSH 10 ML SYR IV PRN; -FLUC200T5 PO; +FLUC200T9 PO
== END ==
LOC: CARD 07:56
PROVIDERS: ATTEND Internal Medicine Cardiovascular Disease
DX: I08.3 Combined rheumatic disorders of mitral, aortic and tricuspid valves (principal)
CPT/HCPCS: 93306